=== PATIENT | male | born 1975 | race Caucasian/White ===

== ENCOUNTER → 2016-11-21 | Outpatient (CLI) | payer OTHER ==
[2015-02-12] VITALS: BP 125/73
[~2016-11-21] MED LIST: ASPI81TA44 PO; CALC667C6 PO; CANA1TAB4 PO; ESOM20CA PO; ESOM20CA30 PO; METF500T4 PO
--- NOTE | 2016-11-21 13:54 | RAD ---
Chest, 2 views, 11/21/2016: History: Smoking history Comparison is made to a study from 03/30/2016. The heart size and pulmonary vascularity are normal. No pulmonary infiltrates are seen. There is no evidence of pleural fluid. IMPRESSION: No acute cardiopulmonary abnormality is detected.
== END | disposition home or self-care (01) ==
LOC: DXRADRC 12:30
PROVIDERS: ATTEND Nurse Practitioner Family
DX: Z87.891 Personal history of nicotine dependence (principal)
CPT/HCPCS: 71020

== ENCOUNTER → 2017-01-10 | Outpatient (CLI) | payer OTHER ==
[2015-02-12] VITALS: BP 125/73
[~2017-01-10] MED LIST changes: +IOHEXOL 240 MG/ML 50ML VIAL. ONE
[2017-01-10 11:30] LABS: CREATININE 1.1 mg/dL (0.7-1.3); GFR 74.5
[2017-01-10] MEDS: IOHEXOL 300 MG/ML 75 ML VIAL. IV ONE (12:15)
[2017-01-10] MEDS: IOHEXOL 240 MG/ML 50ML VIAL. PO ONE (12:15)
--- NOTE | 2017-01-10 15:21 | RAD ---
CT abdomen and pelvis with contrast 01/10/2017 Clinical indication: 35 pound weight loss in 6 months. Change in bowel habits. Negative colonoscopy. Comparison: CT abdomen and pelvis December 26, 2010 Technique: Multiple CT images of the abdomen and pelvis were obtained following uneventful intravenous administration of 75 mL Omnipaque-[place] contrast material. Coronal and sagittal reformations were obtained. PQRS Compliance Statement: One or more of the following individualized dose reduction techniques were utilized for this examination: 1. Automated exposure control 2. Adjustment of the mA and/or kV according to patient size 3. Use of iterative reconstruction technique Findings: Abdomen and pelvis: Heart size and lung bases are within normal limits. There is a stable 5 mm hepatic segment 8 hypodensity which is too small to definitively characterize, though stability suggest benign cyst or meningioma. Gallbladder unremarkable. No intra or extra hepatic biliary ductal dilatation. Spleen, adrenal glands, pancreas and kidneys are within normal limits. No collecting system dilatation. Abdominal aorta is normal in caliber. Incidental note is made of a retroaortic left renal vein. Major portal, splenic and visualized upper sparing mesenteric veins are widely patent. No bowel obstruction. Appendix is normal in appearance. No abdominal free fluid. No retroperitoneal or mesenteric lymphadenopathy. Mildly distended and unopacified urinary bladder within normal limits. Prostate seminal vesicles are present. No iliac or inguinal lymphadenopathy. No pelvic free fluid. No destructive osseous lesions. Impression: No CT etiology to account for patient's reported weight loss.
== END | disposition home or self-care (01) ==
LOC: CT 08:24
PROVIDERS: ATTEND Internal Medicine Gastroenterology
DX: R10.9 Unspecified abdominal pain (principal); R63.4 Abnormal weight loss; R19.4 Change in bowel habit
CPT/HCPCS: 36415; 74177; 82565; Q9966; Q9967

== ENCOUNTER → 2017-03-21 | Outpatient (CLI) | payer OTHER ==
[2015-02-12] VITALS: BP 125/73
[~2017-03-21] MED LIST changes: -IOHEXOL 240 MG/ML 50ML VIAL. ONE
--- NOTE | 2017-03-21 16:18 | RAD ---
Left lower extremity venous duplex ultrasound 03/21/2017 Indication: Left knee pain Comparison study: None Findings: Ultrasound evaluation of left lower extremity deep veins is performed including color Doppler imaging evaluation of vessel compressibility. Static images were submitted to PACS. No evidence of deep venous thrombosis is identified. A small left popliteal fossa cyst appears to be present. This measures approximately 1.5 x 1.6 x 1.3 cm. No other focal sonographic abnormalities are identified. Impression: No sonographic evidence of left lower extremity deep venous thrombosis
== END | disposition home or self-care (01) ==
LOC: US 15:21
PROVIDERS: ATTEND Physician Assistant
DX: M79.604 Pain in right leg (principal); M71.22 Synovial cyst of popliteal space [Baker], left knee
CPT/HCPCS: 93971

== ENCOUNTER → 2017-03-21 | Outpatient (CLI) | payer OTHER ==
[2015-02-12] VITALS: BP 125/73
--- NOTE | 2017-03-21 15:35 | RAD ---
3 views left knee 03/21/2017 2:00 AM Indication: LEFT KNEE PAIN X 1 MTH, NO KNOWN INJURY Comparison: None Findings: There is no fracture or dislocation identified. Articular surfaces are uninterrupted. Soft tissues are unremarkable. Impression: No evidence of acute osseous abnormality
== END | disposition home or self-care (01) ==
LOC: DXRADRC 14:19
PROVIDERS: ATTEND Physician Assistant
DX: M25.562 Pain in left knee (principal)
CPT/HCPCS: 73562

== ENCOUNTER 2017-04-19 19:13 | Emergency (ER) | payer OTHER ==
[~2017-04-19] VITALS: Ht 182.9 cm; Wt 83.9 kg
[2017-04-19] MEDS ORDERED: KETOROLAC 60 MG/2 ML VIAL. IM ONE (19:27)
--- NOTE | 2017-04-19 19:41 | PHYS DOC ---
Past History Past Medical History: Diabetes, GERD, High Cholesterol Past Surgical History: Other Additional Past Surgical Histo: cyst removal Smoking: Cigarettes Alcohol Use: None Drug Use: None Adult General Chief Complaint Chief Complaint: LACERATION/AVULSION HPI HPI This pleasant 42-year-old male who sustained a laceration to the lateral aspect of the left middle finger 30 minutes prior to arrival. Patient was and family and new sharp knife or a box when he actually cross his middle finger of his left hand sustaining a small laceration measuring 1 cm in length. Patient has no numbness and tingling no foreign body sensation patient's laceration was bleeding at the time of his injury but is well-controlled at this time with direct pressure. Patient has no pain with range of motion is in flexion or extension of the finger. Patient's tetanus shot is up-to-date Review of Systems Review of Systems Musculoskeletal: Denies joint pain [] Integument: Denies rash or skin lesions [] Neurologic: Denies focal weakness or sensory changes [] All other systems were reviewed and found to be within normal limits, except as documented in this note. Current Medications Current Medications Current Medications Medications (Trade) Dose Ordered Sig/Lyla Start Time Stop Time Status Last Admin Dose Admin Ketorolac Tromethamine (Toradol) 60 mg STK-MED ONCE 04/19/17 19:27 04/19/17 19:28 DC Allergies Allergies Allergies Coded Allergies Type Severity Reaction Last Updated Verified No Known Drug Allergies 10/01/14 No Physical Exam Physical Exam Other vital signs recorded on the chart within normal limits. Constitutional: Well developed, well nourished, no acute distress, non-toxic appearance. [] Cardiovascular:Heart rate regular rhythm, no murmur [] Lungs & Thorax: Bilateral breath sounds clear to auscultation [] Skin: Warm, dry, no erythema, no rash. [] Extremities: Mall linear clean laceration noted on the lateral aspect of the left middle finger. It measures 1.2 cm in length 3 mm in depth 1 mm in width no active bleeding. Range of motion no obvious tendon involvement the weakness to flexion extension at the finger to resistance. Patient has no foreign body noted within the wound itself. Patient has full range of motion at each the joints. He has brisk capillary refill +2 in the nailbed Neurologic: Alert and oriented X 3, normal motor function, normal sensory function, no focal deficits noted. [] Psychologic: Affect normal, judgement normal, mood normal. [] EKG EKG [] Radiology/Procedures Radiology/Procedures [] Course & Med Decision Making Course & Med Decision Making Pertinent Labs and Imaging studies reviewed. (See chart for details) []he sustained a small laceration to the little finger left hand. He is right- hand-dominant his tetanus shot is up-to-date Laceration note: Patient gave verbal consent to clean and dress wound with adhesive. Laceration is a small 1 cm laceration to the lateral aspect of the left middle finger next to the DIP joint it is clean for signs of foreign body or active bleeding. It was cleaned with hexedine scrub and direct washing. Patient had skin adhesive applied to the wound with good wound closure. Patient tolerated procedure well without complaint or active bleeding or complication. Dragon Disclaimer Dragon Disclaimer This electronic medical record was generated, in whole or in part, using a voice recognition dictation system. Departure Departure: Impression: Primary Impression: Finger laceration Disposition: HOME, SELF-CARE Condition: STABLE Referrals: CLARISA PIERRE (PCP) Patient Instructions: Tissue Adhesive Wound Care Additional Instructions: discharge: I've spoken with the patient and/or caregivers. I've explained the patient's condition, diagnosis and treatment plan based on information available to me at this time. I've answered the patient's and/or caregivers questions and addressed any concerns. The patient and/or caregivers have a good understanding the patient's diagnosis, condition and treatment plan as can be expected at this point. Vital signs have been stabilized. The patient's condition is stable for discharge from the emergency department. The patient will pursue further outpatient evaluation with her primary care provider or other designated consulting physician as outlined in the discharge instructions. Patient and/or caregivers are agreeable to this plan of care and follow-up instructions have been explained in detail. The patient and/or caregivers have received these instructions in written format and expressed understanding of these discharge instructions. The patient and her caregivers are aware that if any significant change in condition or worsening of symptoms should prompt him to immediately return to this of the closest emergency department. If an emergent department is not readily available I would encourage him to call 911. TOLU NELSON MD Apr 19, 2017 19:41
[2017-04-19 19:45] VITALS: BP 129/73
== END 2017-04-19 19:50 | disposition home or self-care (01) ==
LOC: ER 19:13
DX: S61.213A Laceration without foreign body of left middle finger without damage to nail, initial encounter (principal); E11.9 Type 2 diabetes mellitus without complications; E78.00 Pure hypercholesterolemia, unspecified; K21.9 Gastro-esophageal reflux disease without esophagitis; F17.210 Nicotine dependence, cigarettes, uncomplicated; W26.0XXA Contact with knife, initial encounter; Y93.89 Activity, other specified; Y99.8 Other external cause status; Y92.89 Other specified places as the place of occurrence of the external cause
CPT/HCPCS: 12001; 99283-25

== ENCOUNTER → 2017-06-05 | Outpatient (CLI) | payer OTHER ==
[2017-06-05 16:03] LABS: CALCIUM 9.1 mg/dL (8.5-10.1); CREATININE 1.4 mg/dL (0.7-1.3); GFR 56.1; MAGNESIUM 1.8 mg/dL (1.8-2.4)
== END | disposition home or self-care (01) ==
LOC: LAB 15:12
PROVIDERS: ATTEND Nurse Practitioner
DX: E11.9 Type 2 diabetes mellitus without complications (principal); R00.2 Palpitations; F17.210 Nicotine dependence, cigarettes, uncomplicated
CPT/HCPCS: 36415; 80048; 83735

== ENCOUNTER 2020-12-14 05:02 | Emergency (ER) | payer OTHER ==
[~2020-12-14] VITALS: Ht 182.9 cm; Wt 110.3 kg
[~2020-12-14 05:02] MED LIST changes: -ASPI81TA44 PO; +ASPI81TA59 PO; +METF500T16 PO; -METF500T4 PO
--- NOTE | 2020-12-14 05:29 | PHYS DOC ---
Past History Past Medical History: Diabetes, High Cholesterol, Other Past Surgical History: No Surgical History Additional Past Surgical Histo: cyst removal, wisdom teeth extraction 2 1/2 weeks ago. Smoking: Cigarettes Alcohol Use: Occasionally Drug Use: None Adult General Chief Complaint Chief Complaint: EARACHE/EAR PAIN [facility] Patient is a 45 year old male who presents with right ear pain which initially was noted week and half ago but has gotten worse over the last couple of days. He complains of muffled sound and pain upon touching the ear. He has been swimming more often over the last 1 week. He has history of diabetes. He had wisdom tooth pulled out but that all feels okay now. Denies any difficulty swallowing. Denies headache. Denies any visual disturbance. Denies any fever. He has no other complaints. Review of Systems Review of Systems Constitutional: Denies fever or chills Eyes: Denies change in visual acuity, redness, or eye pain HENT: Denies nasal congestion or sore throat Respiratory: Denies cough or shortness of breath Cardiovascular: No additional information not addressed in [facility] GI: Denies abdominal pain, nausea, vomiting, bloody stools or diarrhea : Denies dysuria or hematuria Musculoskeletal: Denies back pain or joint pain Integument: Denies rash or skin lesions Neurologic: Denies headache, focal weakness or sensory changes Endocrine: Denies polyuria or polydipsia All other systems were reviewed and found to be within normal limits, except as documented in this note. Family History Family History Unremarkable Allergies Allergies Allergies Coded Allergies Type Severity Reaction Last Updated Verified No Known Drug Allergies 10/01/14 No Physical Exam Physical Exam Constitutional: Well developed, well nourished, no acute distress, non-toxic appearance. HENT: Normocephalic, atraumatic, right ear is swollen canal is open but with definite swelling and tympanic membrane is dull with likely fluid behind it., oropharynx moist. Eyes: PERRLA, EOMI, conjunctiva normal, no discharge. Neck: Normal range of motion, no tenderness, supple, no stridor. Cardiovascular:Heart rate regular rhythm, no murmur Lungs & Thorax: Bilateral breath sounds clear to auscultation Abdomen: Bowel sounds normal, soft, no tenderness, no masses, no pulsatile masses. Skin: Warm, dry, no erythema, no rash. Back: No tenderness, no CVA tenderness. Extremities: No tenderness, no cyanosis, no clubbing, ROM intact, no edema. Neurologic: Alert and oriented X 3, normal motor function, normal sensory function, no focal deficits noted. Psychologic: Affect normal, judgement normal, mood normal. Current Patient Data Vital Signs Vital Signs Date Time Temp Pulse Resp B/P (MAP) Pulse Ox O2 Delivery O2 Flow Rate FiO2 12/14/20 05:07 98.0 79 16 168/102 100 Room Air EKG EKG [] Radiology/Procedures Radiology/Procedures [] Heart Score C/O Chest Pain: N/A Course & Med Decision Making Course & Med Decision Making Pertinent Labs and Imaging studies reviewed. (See chart for details) Patient clinically has both external otitis and otitis media. She will be treated with Cortisporin otic suspension as well as Zithromax for 5 days. If her symptoms does not completely resolve, she will follow-up with her primary care physician in 5 days. Patient will use Motrin for pain management. Dragon Disclaimer Dragon Disclaimer This electronic medical record was generated, in whole or in part, using a voice recognition dictation system. Departure Departure: Referrals: CLARISA PIERRE (PCP) RIMA NEWELL MD Dec 14, 2020 05:29
[2020-12-14] MEDS ORDERED: NEOMYCIN/POLYMYXIN/HC OTIC SUSPENSION 10ML BOTTLE. AD ONE (05:30)
[2020-12-14] MEDS ORDERED: AZIT250T PO (05:37)
[2020-12-14 05:40] VITALS: BP 140/96
[2020-12-14] MEDS ORDERED: SULF1TAB24 PO (23:59)
[2020-12-14] MEDS ORDERED: HYDR-1179 PO (23:59)
== END 2020-12-14 05:45 | disposition home or self-care (01) ==
LOC: ER 05:02
DX: H60.91 Unspecified otitis externa, right ear (principal); H66.91 Otitis media, unspecified, right ear; E11.9 Type 2 diabetes mellitus without complications; E78.00 Pure hypercholesterolemia, unspecified; F17.210 Nicotine dependence, cigarettes, uncomplicated
CPT/HCPCS: 99283

== ENCOUNTER 2020-12-14 23:35 | Emergency (ER) | payer OTHER ==
[~2020-12-14] VITALS: Ht 182.9 cm; Wt 110.7 kg
[~2020-12-14 23:35] MED LIST changes: +AZIT250T PO
--- NOTE | 2020-12-14 23:46 | PHYS DOC ---
Past History Past Medical History: Diabetes, High Cholesterol, Other Past Surgical History: No Surgical History Additional Past Surgical Histo: cyst removal, wisdom teeth extraction 2 1/2 weeks ago. Smoking: Cigarettes Alcohol Use: Occasionally Drug Use: None General Adult HPI: HPI: ".. This Rt. ear is killing me.. I was here this morning.. and it is no better..." Patient is a 45 year old male who presents with above hx and complaints of right ear external and middle ear otitis, patient seen earlier today. Was started on Zithromax.and prescribed Cortisporin eardrops. Patient has known history of diabetes. Sugars have been 120s to 160s at home. No recent travel. No history immunosuppression. No history of trauma.. Patient does have swelling redness external canal on the right. TM does appear have some injection. Exam TM e is somewhat limited due to canal swelling. Does have some adenopathy at angle of jaw and right upper cervical chain anteriorly. Patient has had recent dental extractions. Review of Systems: Review of Systems: Constitutional: Denies fever or chills Eyes: Denies change in visual acuity HENT: Complains of right ear pain Respiratory: Denies cough or shortness of breath Cardiovascular: Denies chest pain or edema GI: Denies abdominal pain, nausea, vomiting, bloody stools or diarrhea : Denies dysuria Musculoskeletal: Denies back pain or joint pain Integument: Denies rash Neurologic: Denies headache, focal weakness or sensory changes Endocrine: Denies polyuria or polydipsia Lymphatic: Denies swollen glands Psychiatric: Denies depression or anxiety Family History: Family History: Noncontributory to presentation Current Medications: Current Meds: See nursing for home meds Allergies: Allergies: Allergies Coded Allergies Type Severity Reaction Last Updated Verified No Known Drug Allergies 10/01/14 No Physical Exam: PE: Constitutional: Well developed, well nourished, moderate acute distress, non- toxic appearance. [] HENT: Normocephalic, atraumatic, right external l external ear injected swollen, TM mildly injected right, oropharynx moist, no oral exudates, nose normal. [] Adenopathy at angle of right mandible and upper cervical chain. Dental ext ractions appear to be healing well. Eyes: PERRLA, EOMI, conjunctiva normal, no discharge. [] Neck: Normal range of motion, no tenderness, supple, no stridor. [] Adenopathy on right Cardiovascular:Heart rate regular rhythm, no murmur [] Lungs & Thorax: Bilateral breath sounds equal apex auscultation [] Abdomen: Bowel sounds normal, soft, no tenderness, no masses, no pulsatile masses. [] Skin: Warm, dry, no erythema, no rash. [] Back: No tenderness, no CVA tenderness. [] Extremities: No tenderness, no cyanosis, no clubbing, ROM intact, no edema. [] Neurologic: Alert and oriented X 3, normal motor function, normal sensory function, no focal deficits noted. [] Psychologic: Affect anxious, judgement normal, mood normal. [] EKG: EKG: [] Radiology/Procedures: Radiology/Procedures: [] Heart Score: C/O Chest Pain: N/A Risk Factors: Risk Factors: DM, Current or recent (<one month) smoker, HTN, HLP, family history of CAD, obesity. Risk Scores: Score 0 - 3: 2.5% MACE over next 6 weeks - Discharge Home Score 4 - 6: 20.3% MACE over next 6 weeks - Admit for Clinical Observation Score 7 - 10: 72.7% MACE over next 6 weeks - Early Invasive Strategies Course & Med Decision Making: Course & Med Decision Making Pertinent Labs and Imaging studies reviewed. (See chart for details) Patient keep water out of her right ear. Continue with Cortisporin eardrops 2 drops 4 times a day right ear. Patient continue Zithromax as previously prescribed. Patient to add Bactrim DS twice a day. Patient warned that if no improvement must have reexam. Take Tylenol and ibuprofen for pain. For marked pain may take Vicoprofen. Warned of signs of malignant or necrotic otitis in diabetics. Must follow-up. Impression: 1, Right ear external and middle ear otitis. 2. DM [] Dragon Disclaimer: Rohit Disclaimer: This electronic medical record was generated, in whole or in part, using a voice recognition dictation system. Departure Departure: Referrals: CLARISA PIERRE (PCP) Scripts Hydrocodone/Ibuprofen (HYDROCODONE-IBUPROFEN 7.5-200 ) 1 Each Tablet 2 TAB PO PRN Q6HRS PRN for PAIN, #30 TAB 0 Refills Prov: CONSTANTINO MOORE MD 12/14/20 Sulfamethoxazole/Trimethoprim (BACTRIM DS TABLET) 1 Each Tablet 1 TAB PO BID for otitis for 10 Days, #20 TAB 0 Refills Prov: CONSTANTINO MOORE MD 12/14/20 Dragon Disclaimer This chart was dictated in whole or in part using Voice Recognition software in a busy, high-work load, and often noisy Emergency Department environment. It may contain unintended and wholly unrecognized errors or omissions. CONSTANTINO MOORE MD Dec 14, 2020 23:45
[2020-12-14] MEDS ORDERED: SULF1TAB24 PO (23:59)
[2020-12-14] MEDS ORDERED: HYDR-1179 PO (23:59)
[2020-12-15] MEDS ORDERED: cefTRIAXone IM 1 GM VIAL IM ONE
[2020-12-15] MEDS ORDERED: MORPHINE SULFATE 10 MG/ML SYRINGE. SQ ONE
[2020-12-15] MEDS ORDERED: SMZ/TMP 800/160MG TABLET. PO ONE
[2020-12-15] MEDS ORDERED: KETOROLAC 60 MG/2 ML VIAL. IM ONE
[2020-12-15 00:17] VITALS: BP 169/105
== END 2020-12-15 01:47 | disposition home or self-care (01) ==
LOC: ER 23:35
DX: H66.91 Otitis media, unspecified, right ear (principal); E11.9 Type 2 diabetes mellitus without complications; E78.00 Pure hypercholesterolemia, unspecified; F17.210 Nicotine dependence, cigarettes, uncomplicated
CPT/HCPCS: 96372; 99284; J0696; J1885; J2270